=== PATIENT | female | born 2000 | race Caucasian/White ===

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

== ENCOUNTER 2022-02-09 10:42 | Inpatient (IN) | payer MEDICAID ==
[~2022-02-09] VITALS: Ht 157.5 cm; Wt 97.7 kg
[2022-02-09] VITALS (24 sets, daily range): BP systolic 86–131; BP diastolic 49–90
[~2022-02-09 10:42] MED LIST: LOPE2CAP14 PO; ONDA4TAB11 PO
[2022-02-09] MEDS ORDERED: D5 LR IV SOLUTION 1,000 ML IV SCH ×2 (11:45→17:30)
[2022-02-09 12:29] LABS: BASOPHILS % (AUTO) 0 % (0-10); EOSINOPHILS % (AUTO) 0 % (0-10); HEMATOCRIT 32 % (35-52); LYMPHOCYTES # (AUTO) 1.6 10^3/uL (1.0-4.0); LYMPHOCYTES % (AUTO) 12 % (12-44); MEAN CORPUSCULAR HEMOGLOBIN 23 pg (25-34); MEAN CORPUSCULAR HGB CONC 31 g/dL (32-36); MEAN CORPUSCULAR VOLUME 75 fL (80-99); MEAN PLATELET VOLUME 10.1 fL (9.0-12.2); MONOCYTES # (AUTO) 0.7 10^3/uL (0.0-1.0); MONOCYTES % (AUTO) 5 % (0-12); NEUTROPHILS # (AUTO) 11.5 10^3/uL (1.8-7.8); NEUTROPHILS % (AUTO) 82 % (42-75); PLATELET COUNT 394 10^3/uL (130-400); WHITE BLOOD COUNT 14.1 10^3/uL (4.3-11.0)
[2022-02-09] MEDS ORDERED: PNV11TAB5 PO (12:29)
[2022-02-09 12:51] LABS: BAND NEUTROPHILS 2 %; BASOPHILS % (MANUAL) 0 %; EOSINOPHILS % (MANUAL) 0 %; LYMPHOCYTES % (MANUAL) 9 %; METAMYELOCYTES % 2 %; MONOCYTES % (MANUAL) 7 %; MYELOCYTES % 1 %; NEUTROPHILS % (MANUAL) 79 %
[2022-02-09 12:52] LABS: ANISOCYTOSIS SLIGHT; POLYCHROMASIA SLIGHT
[2022-02-09] MEDS ORDERED: fentaNYL 2 mcg/ml BUPIVA 0.125 100 ML ONE (13:17)
[2022-02-09] MEDS ORDERED: LACTATED RINGERS 1,000 ML IV ONE ×2 (13:17→13:45)
[2022-02-09] MEDS ORDERED: fentaNYL INJ 100 MCG/2 ML AMP ONE (13:41)
[2022-02-09] MEDS ORDERED: BUPIVACAINE 0.25% 30 ML (SENSORCAINE) VIAL ONE ×2 (13:41→16:38)
[2022-02-09] MEDS ORDERED: diphenhydrAMINE 50 MG/ML INJ (BENADRYL) IV PRN (13:45)
[2022-02-09] MEDS ORDERED: CATHETER FLUSH 10 ML SYR IV PRN (13:45)
[2022-02-09] MEDS ORDERED: NALOXONE 0.4 MG/ML 1 ML (NARCAN) VIAL IV PRN (13:45)
[2022-02-09] MEDS ORDERED: fentaNYL 2 mcg/ml BUPIVA 0.125 100 ML IV SCH (13:45)
[2022-02-09] MEDS ORDERED: ONDANSETRON 4 MG/2 ML (SDV) Z0FRAN IV PRN (13:45)
[2022-02-09] MEDS ORDERED: CATHETER FLUSH 10 ML SYR IV SCH (14:00)
[2022-02-09] MEDS ORDERED: OXYTOCIN PRE-MIX DRIP 500 ML IV SCH ×2 (14:30→17:30)
--- NOTE | 2022-02-09 15:33 | History & Physical ---
History and Physical Date Seen by Provider: Feb 09, 2022 Time Seen by Provider: 15:30 This patient is a 21-year-old 1 female who presents with complaint of spontaneous rupture membranes at 40+ weeks gestation.Her has been uncomplicated. Her GBS culture was negative. She reports mild contractions started shortly after membranes ruptured Patient has been admitted for labor management and delivery. This is a patient of Dr. Menezes's who is not available at this time. Allergies are none Medications are vitamins Medical social and surgical histories are per the antepartum record HEENT exam is normal Neck is supple no lymphadenopathy no thyromegaly Abdomen is gravid soft nontender nondistended Extremities show no clubbing cyanosis. There is no Homans' sign. Pelvic exam as per the nurse notes since admission Laboratory Tests Test 02/09/22 12:15 Range/Units White Blood Count 14.1 H 4.3-11.0 10^3/uL Red Blood Count 4.30 3.80-5.11 10^6/uL Hemoglobin 10.0 L 11.5-16.0 g/dL Hematocrit 32 L 35-52 % Mean Corpuscular Volume 75 L 80-99 fL Mean Corpuscular Hemoglobin 23 L 25-34 pg Mean Corpuscular Hemoglobin Concent 31 L 32-36 g/dL Red Cell Distribution Width 15.8 H 10.0-14.5 % Platelet Count 394 130-400 10^3/uL Mean Platelet Volume 10.1 9.0-12.2 fL Immature Granulocyte % (Auto) 1 % Neutrophils (%) (Auto) 82 H 42-75 % Lymphocytes (%) (Auto) 12 12-44 % Monocytes (%) (Auto) 5 0-12 % Eosinophils (%) (Auto) 0 0-10 % Basophils (%) (Auto) 0 0-10 % Neutrophils # (Auto) 11.5 H 1.8-7.8 10^3/uL Lymphocytes # (Auto) 1.6 1.0-4.0 10^3/uL Monocytes # (Auto) 0.7 0.0-1.0 10^3/uL Eosinophils # (Auto) 0.0 0.0-0.3 10^3/uL Basophils # (Auto) 0.0 0.0-0.1 10^3/uL Immature Granulocyte # (Auto) 0.2 H 0.0-0.1 10^3/uL Neutrophils % (Manual) 79 % Lymphocytes % (Manual) 9 % Monocytes % (Manual) 7 % Eosinophils % (Manual) 0 % Basophils % (Manual) 0 % Metamyelocytes % 2 % Myelocytes % 1 % Band Neutrophils 2 % Polychromasia SLIGHT Anisocytosis SLIGHT Patient's white blood cell count is slightly elevated consistent with early labor. We will monitor shows a normal heart rate pattern With no concerning T- cell. Assessment and plan 40+ weeks gestation in a patient with PROM. She is admitted now for labor management. She has been allowed an epidural and we are augmenting that with Pitocin due to slow progress since admission. We anticipate a vaginal delivery but would be prepared for a if needed 40 weeks with PROM Allergies and Home Medications Allergies Coded Allergies: No Known Drug Allergies (Unverified , 09/14/21) Patient Home Medication List Home Medication List Reviewed: No Nxk220/FA/Omega3/Dha/Fish Oil ( Gummies) 400 Mcg-32.5 Mg (25 Mg-7.5 Mg) Tab.chew, 2 EACH PO DAILY, (Reported) Entered as Reported by: OPAL RODRIGUEZ on 02/09/22 1229 Last Action: New Order Discontinued Medications Loperamide HCl (Anti-Diarrheal) 2 Mg Capsule, 2 MG PO Q4H PRN for DIARRHEA Discontinued Reason: No Longer Taking Prescribed by: HUANG BROTHERS on 10/18/21743 Last Action: Discontinued Ondansetron (Ondansetron Odt) 4 Mg Tab.rapdis, 4-8 MG PO Q6H PRN for NAUSEA/VOMITING Discontinued Reason: No Longer Taking Prescribed by: HUANG BROTHERS on 10/18/21743 Last Action: Discontinued KAILEY CALLE MD Feb 09, 2022 15:33
[2022-02-09] MEDS ORDERED: OXYC-199 PO (15:37)
[2022-02-09] MEDS ORDERED: IBUP-1780 PO (15:37)
[2022-02-09] MEDS ORDERED: DOCU-143 PO (15:37)
--- NOTE | 2022-02-09 15:38 | Discharge Inst-Surgical ---
Discharge Inst-Surgical Depart Medication/Instructions New, Converted or Re-Newed RX: Transmitted to Pharmacy Consults/Follow Up Patient Instructions: As directed Orders & Referrals Follow Up Appt: Call to make follow up appt. for patient in [address] Menezes. Activity Per routine post vaginal delivery instructions. Prescriptions for Percocet Motrin and Colace have been electronically transmitted to this patient's pharmacy Diet as tolerated Patient may shower or tub bathe as desired. Activity Activity as Tolerated: No Diet Discharge Diet: No Restrictions KAILEY CALLE MD Feb 09, 2022 15:38
[2022-02-09] MEDS ORDERED: CITRIC ACID/SOB CIT (BICITRA) 30 ML UDC ONE (16:04)
[2022-02-09] MEDS ORDERED: METOCLOPRAMIDE INJ 10 MG/2 ML (REGLAN) ONE (16:04)
[2022-02-09] MEDS ORDERED: FAMOTIDINE 20MG/2ML IV (PEPCID) ONE (16:04)
[2022-02-09] MEDS ORDERED: metroNIDAZOLE 500MG/100ML IVPB 100 ML ONE (16:06)
[2022-02-09] MEDS ORDERED: ceFAZolin INJECTION 2,000 MG ONE (16:07)
[2022-02-09] MEDS ORDERED: NS (IVPB) 50 ML ONE (16:07)
[2022-02-09] MEDS ORDERED: OXYC1TAB12 PO (16:10)
--- NOTE | 2022-02-09 16:11 | Discharge Inst-Surgical ---
Discharge Inst-Surgical Depart Medication/Instructions New, Converted or Re-Newed RX: Transmitted to Pharmacy Consults/Follow Up Patient Instructions: As directed Orders & Referrals Follow Up Appt: RTC 1 week for incision check With Dr. Mcwilliams. Call to make follow up appt. for patient in [address] Menezes Wound Care: Remove shirley, apply benzoin and steri strips. Activity Per routine post instructions. Diet as tolerated Patient may shower or tub bathe as desired. Continue home meds Activity Activity as Tolerated: No Diet Discharge Diet: No Restrictions KAILEY MCWILLIAMS MD Feb 09, 2022 16:11
[2022-02-09] MEDS ORDERED: ceFAZolin INJECTION 2,000 MG in NS (IVPB) 50 ML IV NR (16:15)
[2022-02-09] MEDS ORDERED: metroNIDAZOLE 500MG/100ML IVPB 100 ML IV ONE (16:15)
[2022-02-09] MEDS ORDERED: ceFAZolin INJECTION 2,000 MG in NS (IVPB) 50 ML IV ONE (16:15)
[2022-02-09] MEDS ORDERED: KETAMINE 50 MG/5 ML SYRINGE ONE (16:27)
[2022-02-09] MEDS ORDERED: OXYTOCIN PRE-MIX DRIP 500 ML IV ONE ×2 (16:38→16:56)
[2022-02-09] MEDS ORDERED: LIDOCAINE PF 2% 5 ML (XYLOCAINE) VIAL ONE (16:38)
[2022-02-09] MEDS ORDERED: proPOfol 200 MG/20 ML (DIPRIVAN) VIAL IV ONE (16:38)
[2022-02-09] MEDS: KETOROLAC 30 MG/ML VIAL IV SCH ×2 (16:45→21:49)
[2022-02-09] MEDS ORDERED: FAMOTIDINE 20MG/2ML IV (PEPCID) IV ONE (16:45)
[2022-02-09] MEDS ORDERED: METOCLOPRAMIDE INJ 10 MG/2 ML (REGLAN) IV ONE (16:45)
[2022-02-09] MEDS ORDERED: CITRIC ACID/SOB CIT (BICITRA) 30 ML UDC PO ONE (16:45)
[2022-02-09] MEDS ORDERED: LACTATED RINGERS 1,000 ML IV PRN (16:45)
[2022-02-09] MEDS ORDERED: KETOROLAC 30 MG/ML VIAL ONE (16:56)
[2022-02-09] MEDS ORDERED: oxyCODONE/APAP 10/325MG (PERCOCET 10) TABLET PO PRN (17:30)
[2022-02-09] MEDS ORDERED: ONDANSETRON 4 MG/2 ML (SDV) Z0FRAN IVP PRN (17:30)
[2022-02-09] MEDS ORDERED: TETANUS,DIPTH,PERTUSS P/F (BOOSTRIX) 0.5 ML VIAL IM ONE (17:30)
[2022-02-09] MEDS: DOCUSATE SODIUM 100 MG (COLACE) CAP PO SCH (21:49)
[2022-02-10 00:15] VITALS: BP 103/52
[2022-02-10 04:03] VITALS: BP 121/59
[2022-02-10] MEDS: KETOROLAC 30 MG/ML VIAL IV SCH (04:03)
--- NOTE | 2022-02-10 04:38 | OPERATIVE REPORT ---
DATE OF SERVICE: 02/09/2022 PREOPERATIVE DIAGNOSES: Term at 40+ weeks gestation with nonreassuring heart rate pattern/category 3 heart rate pattern. POSTOPERATIVE DIAGNOSES: Term at 40+ weeks gestation with nonreassuring heart rate pattern/category 3 heart rate pattern. OPERATIVE PROCEDURE: Primary low transverse delivery of a viable male infant with Apgars of 9 and 9 at 1 and 5 minutes respectively, weight of 7 pounds 14 ounces. Cord blood pH of 7.3 and a time of 1629. OPERATIVE DESCRIPTION: With the patient in the supine position under satisfactory epidural analgesia, the patient was prepped and draped in the usual fashion for abdominal surgery. Jones catheter was placed in the urinary bladder and left to dependent drainage. A Pfannenstiel incision was made through skin with scalpel. The patient's abdomen entered in the usual manner. Bladder retractor placed into position and clean scalpel used to make 4 cm hysterotomy incision transversely across the lower uterine segment. Scant fluid was released on hysterotomy. That incision was extended bluntly. Shields forceps were applied to facilitate delivery of a vigorous viable male . had Apgars and stats as noted above. Infant was bulb suctioned on delivery of the head and again on completion of delivery. Umbilical cord was doubly clamped and cut and the infant passed to the pediatric nurse in attendance for delivery. Cord bloods were obtained. The placenta delivered spontaneously Andrade. It was normal with a 3-vessel cord. The uterus was exteriorized and interior wiped clean with a wet laparotomy sponge. Uterine incision closed with running locked suture of 2-0 Vicryl. Hemostasis was complete. The uterus was returned to abdominal cavity. All blood clot and debris removed from the abdominal cavity. Sponge and needle counts correct and hemostasis assured, the anterior parietal peritoneum was closed with running suture of 2-0 Vicryl. Rectus muscles were closed with that suture as well. The rectus fascia was closed with 2-0 Vicryl, subcutaneous tissue was closed with 2-0 Vicryl and the skin was stapled. Sponge and needle counts were correct on completion of procedure. Blood loss was around 500 mL. The patient tolerated the procedure well and was transferred to the recovery room in stable condition. The remained at bedside stable as well. CC: Dr. Bolivar - requested, unable to deliver Job ID: [id number] DocumentID: [id number] Dictated Date: 02/09/2022 17:13:30 Aquaculture Worker Date: 02/09/2022 21:51:08 Dictated By: KAILEY CALLE MD
[2022-02-10 08:45] VITALS: BP 107/58
--- NOTE | 2022-02-10 08:53 | Progress Note ---
Standard Progress Note Progress Notes/Assess & Plan Date Seen by a Provider: Feb 10, 2022 Time Seen by a Provider: 08:52 Progress/Assessment & Plan This patient is without complaint. She is ambulating, voiding, tolerating oral intake well and has good pain control. Patient denies chest pain, denies shortness of breath, denies nausea or vomiting, and denies headache. Vital Signs Date Time Temp Pulse Resp B/P (MAP) Pulse Ox O2 Delivery O2 Flow Rate FiO2 02/10/22 04:03 36.8 77 18 121/59 (79) 97 Room Air 02/10/22 00:15 37.0 84 18 103/52 (69) 98 Room Air 02/09/22 21:51 36.8 64 18 126/66 (86) 98 Room Air 02/09/22 18:52 36.4 75 18 118/61 (80) 98 Room Air 02/09/22 17:40 36.4 18 116/67 (83) 98 Room Air 02/09/22 17:40 Room Air 02/09/22 17:25 Room Air 02/09/22 17:22 36.4 18 113/64 (80) 98 Room Air 02/09/22 17:14 118/72 (87) 98 Room Air 02/09/22 17:10 Room Air 02/09/22 17:07 36.5 18 86/49 (61) 98 Room Air 02/09/22 16:55 Room Air 02/09/22 16:52 36.6 18 124/69 (87) 98 Room Air 02/09/22 15:49 36.4 02/09/22 15:34 91 18 112/69 (83) 100 Room Air 02/09/22 15:20 84 18 115/66 (82) 100 Room Air 02/09/22 15:02 92 18 118/67 (84) 100 Room Air 02/09/22 14:48 106 18 114/68 (83) 100 Room Air 02/09/22 14:33 81 18 110/58 (75) 98 Room Air 02/09/22 14:22 102 18 120/77 (91) 98 Room Air 02/09/22 14:14 36.4 80 18 108/52 (70) 98 Room Air 02/09/22 14:11 95 18 111/60 (77) 98 Room Air 02/09/22 14:08 92 18 109/57 (74) 98 Room Air 02/09/22 14:05 76 18 109/57 (74) 98 Room Air 02/09/22 14:02 87 18 107/63 (78) 99 Room Air 02/09/22 14:00 104 18 116/72 (87) Room Air 02/09/22 13:58 85 18 117/68 (84) 99 Room Air 02/09/22 13:54 108 18 117/80 (92) 98 Room Air 02/09/22 13:51 109 18 125/90 (102) 98 Room Air 02/09/22 13:48 101 18 131/82 (98) 97 Room Air 02/09/22 12:22 35.8 02/09/22 11:05 36.6 100 18 126/66 (86) 99 Room Air I & O 02/10/22 07:00 Intake Total 2650 ml Output Total 1150 ml Balance 1500 ml Vital signs are stable. Patient is afebrile. The abdomen is benign. The surgical incision is clean dry and intact. Fundus is firm below the umbilicus and nontender. Extremities show no clubbing or cyanosis. There is no Homans' sign. Assessment and plan Postoperative day #1 status post primary delivery doing well. Plans for routine convalescent care and consider for discharge home tomorrow KAILEY CALLE MD Feb 10, 2022 08:53
[2022-02-10] MEDS ORDERED: IBUPROFEN 800 MG (MOTRIN) TAB PO ONE (10:37)
[2022-02-10] MEDS: DOCUSATE SODIUM 100 MG (COLACE) CAP PO SCH ×2 (10:43→22:05)
[2022-02-10] MEDS: IBUPROFEN 800 MG (MOTRIN) TAB PO SCH ×3 (10:43→22:05)
[2022-02-10 13:10] VITALS: BP 111/55
--- NOTE | 2022-02-10 18:26 | Anesthesia-Regional Post-Op ---
Regional Patient Condition Mental Status: Alert, Oriented x3 Circulation: Same as Pre-Op Headache: Absent Sensation: Full Recovery Motor Block: Absent Post Op Complications Complications None Follow Up Care/Instructions Patient Instructions None needed. Anesthesia/Patient Condition Patient is doing well, no complaints, stable vital signs, no apparent adverse anesthesia problems. No complications reported per nursing. ALEJANDRO MAZARIEGOS CRNA Feb 10, 2022 18:26
[2022-02-10 18:35] VITALS: BP 114/62
[2022-02-10 22:04] VITALS: BP 117/59
[2022-02-11] MEDS: IBUPROFEN 800 MG (MOTRIN) TAB PO SCH ×2 (04:34→10:22)
[2022-02-11 04:35] VITALS: BP 115/67
--- NOTE | 2022-02-11 09:40 | Progress Note ---
Standard Progress Note Progress Notes/Assess & Plan Date Seen by a Provider: Feb 11, 2022 Time Seen by a Provider: 09:39 Progress/Assessment & Plan This patient is without complaint. She is ambulating, voiding, tolerating oral intake well and has good pain control. Patient denies chest pain, denies shortness of breath, denies nausea or vomiting, and denies headache. Vital Signs Date Time Temp Pulse Resp B/P (MAP) Pulse Ox O2 Delivery O2 Flow Rate FiO2 02/10/22 04:03 36.8 77 18 121/59 (79) 97 Room Air 02/10/22 00:15 37.0 84 18 103/52 (69) 98 Room Air 02/09/22 21:51 36.8 64 18 126/66 (86) 98 Room Air 02/09/22 18:52 36.4 75 18 118/61 (80) 98 Room Air 02/09/22 17:40 36.4 18 116/67 (83) 98 Room Air 02/09/22 17:40 Room Air 02/09/22 17:25 Room Air 02/09/22 17:22 36.4 18 113/64 (80) 98 Room Air 02/09/22 17:14 118/72 (87) 98 Room Air 02/09/22 17:10 Room Air 02/09/22 17:07 36.5 18 86/49 (61) 98 Room Air 02/09/22 16:55 Room Air 02/09/22 16:52 36.6 18 124/69 (87) 98 Room Air 02/09/22 15:49 36.4 02/09/22 15:34 91 18 112/69 (83) 100 Room Air 02/09/22 15:20 84 18 115/66 (82) 100 Room Air 02/09/22 15:02 92 18 118/67 (84) 100 Room Air 02/09/22 14:48 106 18 114/68 (83) 100 Room Air 02/09/22 14:33 81 18 110/58 (75) 98 Room Air 02/09/22 14:22 102 18 120/77 (91) 98 Room Air 02/09/22 14:14 36.4 80 18 108/52 (70) 98 Room Air 02/09/22 14:11 95 18 111/60 (77) 98 Room Air 02/09/22 14:08 92 18 109/57 (74) 98 Room Air 02/09/22 14:05 76 18 109/57 (74) 98 Room Air 02/09/22 14:02 87 18 107/63 (78) 99 Room Air 02/09/22 14:00 104 18 116/72 (87) Room Air 02/09/22 13:58 85 18 117/68 (84) 99 Room Air 02/09/22 13:54 108 18 117/80 (92) 98 Room Air 02/09/22 13:51 109 18 125/90 (102) 98 Room Air 02/09/22 13:48 101 18 131/82 (98) 97 Room Air 02/09/22 12:22 35.8 02/09/22 11:05 36.6 100 18 126/66 (86) 99 Room Air I & O 02/10/22 07:00 Intake Total 2650 ml Output Total 1150 ml Balance 1500 ml Vital signs are stable. Patient is afebrile. The abdomen is benign. The surgical incision is clean dry and intact. Fundus is firm below the umbilicus and nontender. Extremities show no clubbing or cyanosis. There is no Homans' sign. Assessment and plan Postoperative day #1 status post primary delivery doing well. Plans for routine convalescent care and consider for discharge home tomorrow February 11, 2022 Patient is without complaint. She is ambulating, voiding, tolerating oral intake well and has good pain control. Patient is requesting discharge home. Vital Signs Date Time Temp Pulse Resp B/P (MAP) Pulse Ox O2 Delivery O2 Flow Rate FiO2 02/11/22 04:35 36.7 84 18 115/67 (83) 97 Room Air 02/10/22 22:04 36.6 74 18 117/59 (78) 97 Room Air 02/10/22 18:35 36.8 95 18 114/62 (79) 98 Room Air 02/10/22 13:10 36.2 81 18 111/55 (73) 98 Room Air Vital signs are stable. Patient is afebrile. The abdomen is benign. The surgical incision is clean dry and intact. Extremities show no clubbing or cyanosis. There is no Homans' sign. Assessment and plan Post operative day #2 status post primary delivery doing well. Plan is for discharge home with follow-up in clinic KAILEY CALLE MD Feb 11, 2022 09:40
[2022-02-11] MEDS: DOCUSATE SODIUM 100 MG (COLACE) CAP PO SCH (10:22)
[2022-02-11 10:23] VITALS: BP 116/60
== END 2022-02-11 12:05 | disposition home or self-care (01) | DRG 788 ==
LOC: LDRP 10:42
PROVIDERS: ADMIT Obstetrics & Gynecology; ATTEND Obstetrics & Gynecology
PROC: 10D00Z1 Extraction of Products of Conception, Low, Open Approach (ICD-10-PCS; principal; 2022-02-09 16:17)
DX: O48.0 Post-term pregnancy (principal); O42.02 Full-term premature rupture of membranes, onset of labor within 24 hours of rupture; O36.8330 Maternal care for abnormalities of the fetal heart rate or rhythm, third trimester, not applicable or unspecified; Z3A.40 40 weeks gestation of pregnancy; Z37.0 Single live birth
CPT/HCPCS: 36415; 85007; 85027; 86780; 86850; 86900; 86901; 94664; 99212